=== PATIENT | male | born 1980 | race Caucasian/White ===

== ENCOUNTER 2022-10-10 17:01 | Emergency (ER) | payer MEDICAID, SELFPAY ==
[2022-10-10 17:03] VITALS: BP 139/100; PULSE 71; RESP 17; TEMP 36.6; O2SAT 95; BMI 29.5
--- NOTE | 2022-10-10 17:06 | HMH.EDGENADL ---
Discharge Plan Disposition Patient Disposition: Home, Self-Care Activity Restrictions/Add. Instructions Additional Instructions/Restrictions: Please make an appointment with an welder production line arc as the duration of your symptoms are out of proportion to what is normal in the setting of corneal abrasion and conjunctivitis, this will be to ensure appropriate healing. Please use the erythromycin ointment that you were given and apply to the affected eye 4 times a day over the next week. Apply cool compresses as discussed 4-5 times a day over the next week as well. Clinical Impressions Clinical Impression: Corneal abrasion, Bacterial conjunctivitis Discharge ED Provider: Kori Tatum General Adult HPI General Chief complaint: Eye Problems Stated complaint: Right eye red and swollen,denies injury Time Seen by Provider: 10/10/22 17:06 History of Present Illness HPI narrative: Patient is a 41-year-old male presenting with right eye pain and redness. States that this was nontraumatic did not have any thing that flew into his eye or any injury to his eye that he is aware of started about 5 days ago. Increasing redness in the conjunctive a no changes in his vision and feels like there is a foreign body. Pain is moderate to mild no fevers or chills no periorbital pain swelling or erythema. Related Data Allergies Allergy/AdvReac Type Severity Reaction Status Date / Time No Known Allergies Allergy Unverified 05/05/17 14:58 [facility] Disclaimer: The information contained in this section may have been updated after the patient was seen, as this information can be updated by other users. Social History Smoking Status: Current every day smoker alcohol intake: never current occupational status: other Travel in the last 8 weeks: None ROS Obtained: Yes All systems reviewed & no additional complaints except as documented Physical Exam General General appearance: alert Eye Eye exam: Present PERRL, EOMI, conjunctival redness, conjunctival injection, discharge and other (No hyphema or iritis); Absent scleral icterus Respiratory Respiratory exam: Present normal lung sounds bilaterally; Absent respiratory distress Cardiovascular Cardiovascular exam: Present regular rate; Absent tachycardia Neurological Exam Neurological exam: Present alert and oriented X3 Medical Decision Making Vadim Inquiry Pt receiving controlled substance: No Vital Signs: 10/10/22 17:03 Temperature 98 F Temperature Source Oral Pulse Rate [Left] 71 Respiratory Rate 17 Blood Pressure [Right Arm] 139/100 H Blood Pressure Mean [Right Arm] 113 Blood Pressure Source [Right Arm] Automatic Cuff Blood Pressure Position [Right Arm] Sitting 02 Sat by Pulse Oximetry 95 Oxygen Delivery Method Room Air Medical Decision Narrative: Visual acuity was normal no hyphema or iritis. He does have on fluorescein staining a small area of uptake around 12:00 on his cornea consistent with corneal abrasion. However his conjunctive a is more inflamed than I normally see in the setting of a corneal abrasion and I am concerned that he has a superimposed bacterial infection and will treat for bacterial conjunctivitis. Erythromycin ointment was provided told to take this 4-6 times a day over the next week. He felt completely better with tetracaine administration. I told him he needs to follow-up with an welder production line arc make an appointment as soon as possible. No evidence of any endophthalmitis glaucoma or any other emergent ocular condition. Critical Care Time Critical Care Time Critical Care Time: No Attestation: On , the high probability of a clinically significant, sudden or life threatening deterioration of the following system(s) required my full and direct attention, intervention and personal management. The time I documented below is in addition to time spent performing reported procedures but includes the following listed in this critical care notation.
--- NOTE | 2022-10-10 17:13 | PC.NURSE ---
NADEEM ALCALA at , eye box at BS
[2022-10-10 17:19] VITALS: BP 139/91; PULSE 71; RESP 18; TEMP 36.7; O2SAT 97
== END 2022-10-10 17:19 | disposition home or self-care (01) ==
LOC: ER 17:30
PROVIDERS: Emergency Provider Student in an Organized Health Care Education/Training Program
DX: S05.01XA Injury of conjunctiva and corneal abrasion without foreign body, right eye, initial encounter (principal); H10.31 Unspecified acute conjunctivitis, right eye; X58.XXXA Exposure to other specified factors, initial encounter; F17.200 Nicotine dependence, unspecified, uncomplicated
CPT/HCPCS: 99283; 99284